=== PATIENT | female | born 1995 | race Caucasian/White ===

== ENCOUNTER 2016-06-18 21:38 | Emergency (ER) | payer OTHER ==
--- NOTE | 2016-06-18 23:11 | ED NURSING NOTES ---
Clinical Report - Nurses [facility] [address] [place] [address] 06/18/2016 21:40 Patient: VENESSA POON TRIAGE Triage time 21:45. Acuity: LEVEL 3. Chief Complaint: DIZZINESS, PALPITATIONS, DYSPNEA and NAUSEA. --21:49 TonyaB, R.N. 21:45 06/18/16. BP: 155/75. HR: 105. RR: 16. O2 saturation: 98%. Temp: 97.6 F. Pain level now: 0/10. --21:49 TonyaB, R.N. Weight: 122.4 kg. Height/Length: 65 inches. BMI: 45. --21:49 TonyaB, R.N. Medications Control Pills. --21:47 TonyaB, R.N. Allergies No Known Drug Allergy. --21:47 TonyaB, R.N. History Arrived by private vehicle. Historian: patient. Accompanied by family. This started today. 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 PAST MEDICAL HX: Immunizations: up-to-date. Last normal menstrual period- May. SURGERY HX: No history of previous surgery. SOCIAL HX: Never smoker. Occasional alcohol use. History of drug use. No infectious disease exposure. SELF HARM ASSESSMENT: A self harm assessment was performed. The patient answered "no" to the question "Have you recently felt down, depressed, or hopeless?", "Have you noticed less interest or pleasure in doing things?", "Do you have thoughts of harming or killing yourself?", "Are you here because you tried to hurt yourself?", "Have you ever tried to hurt yourself before today?", "Have you recently had thoughts about harming or killing others?" and "Do you have any dangerous items in your possession?". FALL RISK ASSESSMENT: Fall risk assessment completed. No fall risk identified. NUTRITIONAL RISK ASSESSMENT: The nutritional risk assessment revealed no deficiencies. FUNCTIONAL ASSESSMENT: Functional assessment: no impairments noted. LEARNING NEEDS ASSESSMENT: The learning needs assessment revealed no barriers. SKIN INTEGRITY ASSESSMENT: Skin integrity risk assessment completed. No skin integrity risk identified. --21:49 Hoda Allen. ADDITIONAL SURGERIES: no known surgeries. Interventions ID band on patient. To treatment room. --21:49 Hoda Allen. PHYSICAL ASSESSMENT GENERAL / NEURO / PSYCH: Alert. Oriented X 4. Appears in no acute distress. HEENT: Pupils equal, round and reactive to light. No facial asymmetry noted. Mucous membranes are pink. RESPIRATORY: Respirations not labored. Chest nontender. Breath sounds within normal limits. CVS: Normal sinus rhythm noted. Capillary refill less than 2 seconds. Pulses within normal limits. GI / : Abdomen soft and nontender and normal bowel sounds. SKIN: Skin intact. Skin is warm and dry. Normal skin turgor. --21:50 Hoda Allen. SKIN: ( face is flushed). --21:50 Vaishali Allen NURSING PROGRESS NOTES EKG time: (2228 PM). EKG was ordered, performed by a tech and shown to the ED physician. --22:34 Aneta Christie 22:31 06/18/2016 Benadryl (DiphenhydrAMINE HCl) PO Capsules 50 mg given. Allergies verified, confirmed 5 rights and sedative warning given to the patient. --22:36 Vaishali Allen ( blood and urine sent to the lab). --22:40 Vaishali Allen DISPOSITION / DISCHARGE Condition at departure: improved. No learning barriers present. Discharge instructions provided and reviewed with the patient. Treatments reviewed. Reviewed referrals. Patient and parent verbalized understanding. Written instructions provided in Romanian. The patient was discharged by the physician. She was discharged home and accompanied by parent. She left the Emergency Department ambulatory and via private vehicle. Parent driving. FALL RISK ASSESSMENT: Fall risk assessment completed. No fall risk identified. --23:29 Vaishali Allen 23:27 06/18/16. BP: 146/78. HR: 96. RR: 18. O2 saturation: 100%. Temp: deferred. Pain level now: 0/10. --23:29 Vaishali Allen Departure time: :29. --23:29 Vaishali Allen Locked/Released at 06/18/2016 23:30 by Vaishali Allen
--- NOTE | 2016-06-18 23:11 | ED NURSING NOTES ---
Clinical Report - Nurses [facility] [address] [place] [address] 06/18/2016 21:40 Patient: VENESSA POON TRIAGE Triage time 21:45. Acuity: LEVEL 3. Chief Complaint: DIZZINESS, PALPITATIONS, DYSPNEA and NAUSEA. --21:49 TonyaB, R.N. 21:45 06/18/16. BP: 155/75. HR: 105. RR: 16. O2 saturation: 98%. Temp: 97.6 F. Pain level now: 0/10. --21:49 TonyaB, R.N. Weight: 122.4 kg. Height/Length: 65 inches. BMI: 45. --21:49 TonyaB, R.N. Medications Control Pills. --21:47 TonyaB, R.N. Allergies No Known Drug Allergy. --21:47 TonyaB, R.N. History Arrived by private vehicle. Historian: patient. Accompanied by family. This started today. 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 PAST MEDICAL HX: Immunizations: up-to-date. Last normal menstrual period- May. SURGERY HX: No history of previous surgery. SOCIAL HX: Never smoker. Occasional alcohol use. History of drug use. No infectious disease exposure. SELF HARM ASSESSMENT: A self harm assessment was performed. The patient answered "no" to the question "Have you recently felt down, depressed, or hopeless?", "Have you noticed less interest or pleasure in doing things?", "Do you have thoughts of harming or killing yourself?", "Are you here because you tried to hurt yourself?", "Have you ever tried to hurt yourself before today?", "Have you recently had thoughts about harming or killing others?" and "Do you have any dangerous items in your possession?". FALL RISK ASSESSMENT: Fall risk assessment completed. No fall risk identified. NUTRITIONAL RISK ASSESSMENT: The nutritional risk assessment revealed no deficiencies. FUNCTIONAL ASSESSMENT: Functional assessment: no impairments noted. LEARNING NEEDS ASSESSMENT: The learning needs assessment revealed no barriers. SKIN INTEGRITY ASSESSMENT: Skin integrity risk assessment completed. No skin integrity risk identified. --21:49 Hoda Allen. ADDITIONAL SURGERIES: no known surgeries. Interventions ID band on patient. To treatment room. --21:49 Hoda Allen. PHYSICAL ASSESSMENT GENERAL / NEURO / PSYCH: Alert. Oriented X 4. Appears in no acute distress. HEENT: Pupils equal, round and reactive to light. No facial asymmetry noted. Mucous membranes are pink. RESPIRATORY: Respirations not labored. Chest nontender. Breath sounds within normal limits. CVS: Normal sinus rhythm noted. Capillary refill less than 2 seconds. Pulses within normal limits. GI / : Abdomen soft and nontender and normal bowel sounds. SKIN: Skin intact. Skin is warm and dry. Normal skin turgor. --21:50 Hoda Allen. SKIN: ( face is flushed). --21:50 Vaishali Allen NURSING PROGRESS NOTES EKG time: (2228 PM). EKG was ordered, performed by a tech and shown to the ED physician. --22:34 Aneta Christie 22:31 06/18/2016 Benadryl (DiphenhydrAMINE HCl) PO Capsules 50 mg given. Allergies verified, confirmed 5 rights and sedative warning given to the patient. --22:36 Vaishali Allen ( blood and urine sent to the lab). --22:40 Vaishali Allen DISPOSITION / DISCHARGE Condition at departure: improved. No learning barriers present. Discharge instructions provided and reviewed with the patient. Treatments reviewed. Reviewed referrals. Patient and parent verbalized understanding. Written instructions provided in Setswana. The patient was discharged by the physician. She was discharged home and accompanied by parent. She left the Emergency Department ambulatory and via private vehicle. Parent driving. FALL RISK ASSESSMENT: Fall risk assessment completed. No fall risk identified. --23:29 Vaishali Allen 23:27 06/18/16. BP: 146/78. HR: 96. RR: 18. O2 saturation: 100%. Temp: deferred. Pain level now: 0/10. --23:29 Vaishali Allen Departure time: :29. --23:29 Vaishali Allen Locked/Released at 06/18/2016 23:30 by Vaishali Allen
--- NOTE | 2016-06-18 23:11 | ED ORDER SUMMARY ---
..... Patient: VENESSA POON OrderSheet [facility] VisitID: [id number] [address] [place] [address] 21y, F Registration Date/Time: 06/18/2016 ORDER SHEET Weight: 122.4 kg Allergies: No Known Drug Allergy GENERAL ORDERS: Group Manager (Continuous) (palpitations) (22:10 06/18/2016 Kely Coppola) (Ack 22:13 AMcQuoid ER Tech1) (22:35 CHategekimana) CBC w Diff Urgent (22:10 06/18/2016 Kely Coppola) (Ack 22:13 AMcQuoid ER Tech1) (22:36 TBowen R.N.) CMP Urgent (22:10 06/18/2016 Kely Coppola) (Ack 22:13 AMcQuoid ER Tech1) (22:36 TBowen R.N.) UA-Culture if indicated Urgent (22:10 06/18/2016 Kely Coppola) (Ack 22:13 AMcQuoid ER Tech1) (22:36 TBowen R.N.) Urine Urgent (22:10 06/18/2016 Kely Coppola) (Ack 22:13 AMcQuoid ER Tech1) (22:36 TBowen R.N.) Pulse oximeter (22:10 06/18/2016 Kely Coppola) (Ack 22:13 AMcQuoid ER Tech1) (22:38 TBowen R.N.) EKG - ER Stat (22:10 06/18/2016 Kely Coppola) (Ack 22:13 AMcQuoid ER Tech1) (22:35 CHategekimana) MEDICATION ORDERS: Benadryl PO 50 mg (NOW) (22:10 06/18/2016 Kely Coppola) (22:36 TBowen R.N.) IV FLUIDS: ORDER SHEET NOTES: [Electronically signed by Alice Bullock R.N. (23:30 06/18/2016)] [Electronically signed by Doc Pace Dr. (05:45 06/19/2016)] [Electronically locked/signed by Alice Bullock R.N. (23:30 06/18/2016)]
--- NOTE | 2016-06-18 23:11 | ED CLINICAL REPORT ---
Clinical Report - Physicians/Mid Levels [facility] [address] [place] [place] [address] 06/18/2016 21:40 Patient: VENESSA POON Time Seen: 2200. Arrived- By private vehicle. Historian- patient. HISTORY OF PRESENT ILLNESS Chief Complaint: PALPITATIONS. Modifying factors. Not worsened by anything. Not relieved by anything. This started today and is still present but is improving. It was abrupt in onset and has been constant but is not gone now. It is described as a fast heart beat. She complains of dizziness. No chest pain or discomfort, sweating episodes, fainting episodes or dizziness. No muscle spasms. She has had difficulty breathing. ( reports recently starting up back work at [employer]. states it is stressfull.). 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 Similar symptoms previously: None. Recent medical care: Not recently seen/assessed. REVIEW OF SYSTEMS No fever, chills, skin rash or depression. Increase urinary frequency. no shortness of breath and contrast was recorded from triage. All systems otherwise negative, except as recorded above. PAST HISTORY See nurses notes. patient with history of depression and anxiety. Additional Surgeries: no known surgeries. Medications: Control Pills. Allergies: No Known Drug Allergy. SOCIAL HISTORY Never smoker. No alcohol use or drug use. No recent travel. Is a local resident. ADDITIONAL NOTES The nursing notes have been reviewed. PHYSICAL EXAM Vital Signs: 06/18/2016 21:45 BP: 155/75. HR: 105. RR: 16. O2 saturation: 98%. Temp: 97.6 F. Pain level now: 0/10. Hypertensive. Oxygen saturation normal. Appearance: Alert. Oriented X3. No acute distress. (above average BMI). Eyes: Pupils equal, round and reactive to light. Eyes normal inspection. ENT: Ears normal. Nose normal. Pharynx normal. Neck: Normal inspection. Neck supple. CVS: Normal heart rate and rhythm. Heart sounds normal. Pulses normal. Respiratory: No respiratory distress. Breath sounds normal. Chest nontender. No rales, rhonchi or wheezes. Abdomen: Soft and nontender. Bowel sounds normal. No mass. Back: Normal external inspection. Skin: Skin warm and dry. Normal skin color. No rash. Normal skin turgor. Extremities: Extremities exhibit normal ROM. No lower extremity edema. Neuro: Oriented X 3. No motor deficit. No sensory deficit. (No HI/SI or hallucinations/delusions). LABS, X-RAYS, AND EKG EKG: No acute process. No acute ischemia. Normal EKG. Normal sinus rhythm. Rate: 96. Normal P waves. Normal DARIUS. Normal QRS complex. Normal axis. Normal ST and T waves, QT and QTc. Normal sinus. Read from artifact. NO T wave abnormality on my read. The study has been interpreted contemporaneously by me. The study has been independently viewed by me. Artifact present. I do not agree with or confirm the computer reading of the EKG. Laboratory Tests: UA-Culture if indicated: (OVIDIO: 06/18/2016 22:15) ( [facility] 06/18/2016 22:34) Final results Test Result Flag Units (Reference) URINE COLOR YELLOW URINE APPEARANCE CLEAR URINE GLUCOSE 3+ (NEGATIVE) URINE BILIRUBIN NEGATIVE (NEGATIVE) URINE KETONE 1+ (NEGATIVE) URINE SPECIFIC GRAVITY >= 1.030 (1.010-1.030) URINE PH 6.0 (5.0-8.0) URINE PROTEIN NEGATIVE (NEGATIVE) URINE UROBILINOGEN 0.2 EU/dL (0.2-1.0) URINE NITRITE NEGATIVE (NEGATIVE) URINE BLOOD NEGATIVE (NEGATIVE) URINE LEUK ESTERASE NEGATIVE (NEGATIVE) URINE RBC 0-1 rbc/hpf (0-1) URINE WBC 0-1 wbc/hpf (0-1) URINE EPITHELIAL CELLS 0-1 EPI/hpf (0-5) URINE BACTERIA NONE SEEN (NONE SEEN) URINE COMMENT CULT NOT INDICATED URINE CULTURES ARE SET-UP BASED ON THE FOLLOWING CRITERIA:POSITIVE NITRITEPOSITIVE LEUKOCYTE ESTERASEGREATER THAN 10 WHITE BLOOD CELLSMODERATE (2+) OR GREATER BACTERIA Urine: (OVIDIO: 06/18/2016 22:15) ( [facility] 06/18/2016 22:32) Final results Test Result Flag Units (Reference) URINE NEGATIVE CBC w Diff: (OVIDIO: 06/18/2016 22:20) ( MsgRcvd 06/18/2016 22:42) Final results Test Result Flag Units (Reference) WHITE BLOOD COUNT 9.4 K/uL (4.5-11.5) RED BLOOD COUNT 3.96 L M/uL (4.00-5.20) HEMOGLOBIN 12.0 gm/dL (12.0-16.0) HEMATOCRIT 35.6 L % (36.0-46.0) MEAN CELL VOLUME 90 fL (80-100) MEAN CORPUSCULAR HGB 30 pg (26-34) MEAN CORPUSCULAR HGB CONC 34 g/dL (31-37) RED CELL DISTRIBUTION WIDTH 13.9 % (11.6-14.8) PLATELET COUNT 287 K/uL (150-400) NEUTROPHIL % 62.1 % (50-75) LYMPH % 29.1 % (25-40) MONO % 8.3 % (3-14) EOSINOPHIL % 0.3 % (0-4) BASOPHIL % 0.2 % (0-2) CMP: (OVIDIO: 06/18/2016 22:20) ( MsgRcvd 06/18/2016 22:59) Final results Test Result Flag Units (Reference) GLUCOSE 270 H mg/dL (70-110) BUN 14 mg/dL (7-18) CREATININE 1.1 mg/dL (0.6-1.3) Estimated GFR >60 mL/min Estimated GFR- >60 mL/min Note: Persistent reduction over 3 months in eGFR<60 mL/min/1.73 m2 defines CKD. Patients with eGFR values>=60 mL/min/1.73 m2 may also have CKD if evidence ofpersistent proteinuria. Additional information may be foundat www.kidney.org. SODIUM 141 mmol/L (136-145) POTASSIUM 3.7 mmol/L (3.5-5.1) CHLORIDE 104 mmol/L (98-107) CARBON DIOXIDE 25 mmol/L (21-32) CALCIUM 9.6 mg/dL (8.5-10.1) TOTAL PROTEIN 8.0 g/dL (6.4-8.2) ALBUMIN 3.9 g/dL (3.3-5.0) BILIRUBIN, TOTAL 0.2 mg/dL (0.0-1.0) ALKALINE PHOSPHATASE 52 U/L (46-116) AST (SGOT) 21 U/L (15-37) ALT (SGPT) 25 U/L (12-78) . PROGRESS AND PROCEDURES Course of Care: The patient is a pleasant 21-year-old female presenting for evaluation of near syncope and palpitations. The patient will be evaluated with the [place] syncope rule. The patient's mother who is at bedside per patient's request is agreeable to the treatment plan as well as the patie At this time differential diagnosis includes urinary tract infection, electrolyte abnormality,or acute adjustment disorder. Workup shows patient to have anegative [place] syncope role workup. No acute abnormalities noted on EKG. Hemoglobin and hematocrit are otherwise unremarkable. Vital signs are also noted to beadequate for her blood pressure. The patient did have a concerning finding with her urine glucose being elevated at 3+. Patient also had an elevated serum glucose without anion gap. Patient has no evidence ofdiabetic ketoacidosis. Because of the patient's above-average BMI and findings on laboratory studies,diabetes mellitus type 2 likely. I discussion with patient in regards to her findings here in the emergency department and need for close follow-up with her primary care Dr. Discussed nonpharmacological treatment methods for diabetes and encouraged patient to be diligence with diet and exercise. CLINICAL IMPRESSION 06/18/2016 21:45 BP: 155/75. HR: 105. RR: 16. O2 saturation: 98%. Temp: 97.6 F. Pain level now: 0/10. Blood pressure normal. Oxygen saturation normal. Palpitations (acute). Essential hypertension. Moderate hyperglycemia (acute). INSTRUCTIONS Warnings: GENERAL WARNINGS: Return or contact your physician immediately if your condition worsens or changes unexpectedly, if not improving as expected, or if other problems arise. SPECIFICALLY, return if you develop chest, neck, jaw, shoulder, arm, or back pain, difficulty breathing, a fluttering sensation in your chest, lightheadedness, fainting, excessive fatigue, or sudden sweating. Your Current Medications: CONTINUE TAKING THE FOLLOWING MEDICATIONS: Control Pills*. Follow-up: Return to the emergency department as needed. Follow up with your doctor in three days. Reason for referral: recheck today's concerns. Summary of care provided to patient and family via paper. Screening today revealed the patient's blood pressure to be in the normal range. The patient should follow up with a primary care provider for blood pressure management. Understanding of the discharge instructions verbalized by patient. (Electronically signed by Doc Pace Dr. 06/19/2016 5:45)
--- NOTE | 2016-06-18 23:11 | ED ORDER SUMMARY ---
..... Patient: VENESSA POON OrderSheet [facility] VisitID: [id number] [address] [place] [address] 21y, F Registration Date/Time: 06/18/2016 ORDER SHEET Weight: 122.4 kg Allergies: No Known Drug Allergy GENERAL ORDERS: Proj Mgr (Continuous) (palpitations) (22:10 06/18/2016 Kely Coppola) (Ack 22:13 AMcQuoid ER Tech1) (22:35 CHategekimana) CBC w Diff Urgent (22:10 06/18/2016 Kely Coppola) (Ack 22:13 AMcQuoid ER Tech1) (22:36 TBowen R.N.) CMP Urgent (22:10 06/18/2016 Kely Coppola) (Ack 22:13 AMcQuoid ER Tech1) (22:36 TBowen R.N.) UA-Culture if indicated Urgent (22:10 06/18/2016 Kely Coppola) (Ack 22:13 AMcQuoid ER Tech1) (22:36 TBowen R.N.) Urine Urgent (22:10 06/18/2016 Kely Coppola) (Ack 22:13 AMcQuoid ER Tech1) (22:36 TBowen R.N.) Pulse oximeter (22:10 06/18/2016 Kely Coppola) (Ack 22:13 AMcQuoid ER Tech1) (22:38 TBowen R.N.) EKG - ER Stat (22:10 06/18/2016 Kely Coppola) (Ack 22:13 AMcQuoid ER Tech1) (22:35 CHategekimana) MEDICATION ORDERS: Benadryl PO 50 mg (NOW) (22:10 06/18/2016 Kely Coppola) (22:36 TBowen R.N.) IV FLUIDS: ORDER SHEET NOTES: [Electronically signed by Alice Bullock R.N. (23:30 06/18/2016)] [Electronically signed by Doc Pace Dr. (05:45 06/19/2016)] [Electronically locked/signed by Alice Bullock R.N. (23:30 06/18/2016)]
--- NOTE | 2016-06-19 05:45 | ED DISCHARGE INSTRUCTIONS ---
Patient: VENESSA POON General Instructions [facility] VisitID: [id number] [place] [address] 21y, F Registration Date/Time: 06/18/2016 06/18/2016 21:45 BP: 155/75. HR: 105. RR: 16. O2 saturation: 98%. Temp: 97.6 F. Pain level now: 0/10. Blood pressure normal. Oxygen saturation normal. Palpitations (acute). Essential hypertension. Moderate hyperglycemia (acute). INSTRUCTIONS Warnings: GENERAL WARNINGS: Return or contact your physician immediately if your condition worsens or changes unexpectedly, if not improving as expected, or if other problems arise. SPECIFICALLY, return if you develop chest, neck, jaw, shoulder, arm, or back pain, difficulty breathing, a fluttering sensation in your chest, lightheadedness, fainting, excessive fatigue, or sudden sweating. Your Current Medications: CONTINUE TAKING THE FOLLOWING MEDICATIONS: Control Pills*. Follow-up: Return to the emergency department as needed. Follow up with your doctor in three days. Reason for referral: recheck today's concerns. Summary of care provided to patient and family via paper. Screening today revealed the patient's blood pressure to be in the normal range. The patient should follow up with a primary care provider for blood pressure management. Understanding of the discharge instructions verbalized by patient. ADDITIONAL INFORMATION Heart Palpitations Palpitations refers to the feeling that your heart is beating hard, fast or irregular. Some people describe it as "pounding" or "skipped beats". Palpitations may occur in persons with heart disease, but can also occur in healthy persons. Heart-Related Causes: Arrhythmia (a change from the heart's normal rhythm) Disease of the heart valves [id number]-[id number] Causes: Certain medicines (such as asthma inhalers and decongestants) Some herbal supplements, energy drinks and pills, and weight loss pills Illegal stimulant drugs (such as cocaine, crank, methamphetamine, PCP) Caffeine, alcohol and tobacco Medical conditions such as thyroid disease, anemia, anxiety and panic disorder Sometimes the cause cannot be found. Home Care: Avoid excess caffeine, alcohol, tobacco and any stimulant drugs. Tell your doctor about any prescription or fuoo-goe-newnnmw or herbal medicines you take. Follow Up with your doctor or as advised by our staff. Get Prompt Medical Attention if any of the following occur together with palpitations: Weakness, dizziness, light-headed or fainting Chest pain or shortness of breath Rapid heart rate (over 120 beats per minute, at rest) Palpitations that lasts over 20 minutes Weakness of an arm or leg or one side of the face Difficulty with speech or vision Arrhythmia Electrical impulses cause the normal heart to beat 60 to 100 times a minute. These impulses come from a natural pacemaker deep inside the heart muscle. Each impulse causes the heart muscle to contract. This causes the blood to flow through the heart and out to the tissues and organs of your body. An arrhythmia is a change from the normal speed or pattern of these electrical impulses. This can cause the heart to beat too fast (tachycardia); or too slow (bradycardia); or in an unsteady pattern (irregular rhythm). Symptoms of arrhythmias Different people experience arrhythmias differently. Sometimes they may not have symptoms, but just notice a change in their pulse. Symptoms can include: Fluttering feeling in the chest Shortness of breath Chest pain or pressure Lightheadedness or dizziness Fainting or nearly fainting Palpitations Tiredness, fatigue, or weakness Causes of arrhythmias Arrhythmias are most often due to heart disease such as: Coronary artery disease (arteriosclerosis) Disease of the heart valves Enlarged heart High blood pressure Heart failure Other causes ofarrhythmia include: Certain medicines (such as asthma inhalers and decongestants) Some herbal supplements Cardiac stimulant drugs (such as cocaine, amphetamine, diet pills, certain decongestant cold medicines, caffeine, and nicotine) Excessive alcohol use Medical conditions such as thyroid disease, anemia, anxiety, and panic disorder Arrythmias can often be prevented. The cause and type of arrhythmia determines the best treatment. Sometimes your doctor may want to monitor your heart rate over a 24-hour period or longer. This can help identify the cause of your arrhythmia and find the best treatment. This can be done with a Holter monitor,a portable EKG recording device attached by wires to your chest. You can carry this with you as you perform your routine activities during the monitoring period. Home care Avoid cardiac stimulants (such as cocaine, amphetamine, diet pills, certain decongestant cold medicines, caffeine, and nicotine). If you smoke, stop smoking. Contact your doctor or a local stop-smoking program for help. Tell your doctor about any prescription, epsh-hkm-zxcozti or herbal medicines you take. These may be affecting your heart rhythm. Follow-up care Follow up with your health care provider or as advised by our staff. If a Holter monitor has been recommended, contact the cardiologistyou have been referred toas soon as you canpick up the device. Other outpatient tests may also be arranged for you at that time. Call 911 This is the fastest and safest way to get to the emergency department. The paramedics can also start treatment on the way to the hospital, if needed. Don'twait until your symptoms are severe to call 911. Other reasons to call 911 besides chest pain include: Chest, shoulder, arm, neck, or back pain Shortness of breath Feeling lightheaded, faint, or dizzy Rapid heart beat Slower than usual heart rate compared to your normal Angina withweakness, dizziness, fainting, heavy sweating, nausea, or vomiting Extreme drowsiness, or confusion Weakness of an arm or leg or one side of the face Difficulty with speech or vision When to seek medical care Remember, things are not always like they are on TV. Sometimes it is not so obvious. You may only feel weak or just "not right." If it is not clear or if you have any doubt, call for advice. Seek help for chest pain, or it feels different from usual, even if your symptoms are mild. Do not drive yourself. Have someone else drive. If no one can drive you, call 911. If your doctor has given you medicines to take when you have symptoms, take them, but do not delay getting help while trying to find them. Do not delay. Fast diagnosis and treatment can prevent or limit the amount of heart damage during a heart attack or stroke. Do not go to your doctor's ofice or a clinic because they will not be able to provide all of the testing or treatment required for this condition. High Blood Pressure -- To Be Confirmed [No Tx] Your blood pressure was higher today than normal. Sometimes anxiety or pain can cause a temporary rise in blood pressure that later returns to normal. If your blood pressure is high on one measurement, this does not mean that you have hypertension (a chronic illness). However, you must have your blood pressure measured again within the next few days to find out if its still high. A normal blood pressure is 120/80 or less. The first (top) number is the "systolic" pressure. The second (bottom) number is the "diastolic" pressure. Hypertension exists when either the top number is 140 or higher, OR the bottom number is 90 or higher on repeated measurements. Blood pressure in the range of 120-140 (systolic) or 80-89 (diastolic) is considered "pre-hypertension". This means your are at risk for getting hypertension. You should have regular blood pressure checks to be sure your blood pressure is not rising. Home Care: Measure your blood pressure on 3 different days and write down the results. This can be done at your doctor's office or this facility. Some pharmacies and grocery stores offer automated blood pressure machines for your use. Follow Up: If your blood pressure is "high" (over 120/80) on 2 out of 3 days, you will need to follow up with your doctor for further evaluation and treatment. DO NOT PUT THIS OFF! Untreated high blood pressure increases the risk for heart attack, also known as acute myocardial infarction, or AMI, and stroke. It is a treatable condition. Get Prompt Medical Attention if any of the following occur: Chest pain or shortness of breath Severe headache Throbbing or rushing sound in the ears Nosebleed Sudden severe abdominal pain Extreme drowsiness, confusion or fainting Dizziness or vertigo (dizziness with spinning sensation) Weakness of an arm or leg or one side of the face Difficulty with speech or vision Diabetes with High Blood Sugar You have been treated for high blood sugar (hyperglycemia). This may be becauseof an infection or other illness;eating too many sweets or starches ; not taking enough insulin. Home care High blood sugar may cause symptoms that you can learn to recognize, such as these: If you feel like your blood sugar may be too high, measure it using a blood or urine test. If it is above your usual range, use the "sliding scale"rRegular insulin dose your doctor gave you to correct this. If no "sliding scale" orders were given, contact your doctor for further advice. If your blood sugar is over 300, and you can't reach your doctor, go to the hospital emergency room. Monitor and write down your blood sugars - and insulin dose, if you take insulin - atleast twice a day. Do this before breakfast and before dinner. Do this for the next 3 to 5 days. Follow-up care [facility] the [facility] week to review your blood sugar records. You will find out if you need to adjust your dose of insulin or other medicine for blood sugar. When to seek medical care Get prompt medical attention if either of these occur: High blood sugar.Symptoms are frequent urination, feeling dizzy, thirst, headache, nausea or vomiting, abdominal pain, and drowsiness or loss of consciousness. Low blood sugar. Symptoms are fatigue, headache, shakes, excess sweating, hunger, anxiety, reduced vision, drowsiness, weakness, confusion or loss of consciousness, and seizure. Diabetes (General Information) Cells of the body need glucose (sugar) for fuel. Insulin is the hormone in the body that lets glucose move from the blood into the cells. Diabetes is a chronic health condition where the body is not able to produce enough insulin, or does not respond well to its own insulin. Because the glucose in the blood cannot get into the cells, it builds up in the blood causing high blood sugar (hyperglycemia). Your actual blood sugar level is a result of the balance between several factors. These include what kind of food you eat and how much of it you eat, how much exercise you get, and the amount of insulin present in your body. Eating too much of the wrong kinds of food or not taking diabetes medicine on time can cause high blood sugar. Infections can cause high blood sugar even if you are taking medicines correctly. Missing meals, not eating enough food, or taking too much diabetes medicine can lead to low blood sugar. Untreated over long periods of time, diabetes can cause serious problems such as heart disease, stroke, kidney failure, blindness, nerve pain or loss of feeling in the legs and feet, and gangrene of the feet. With good treatment keeping your blood sugar under control, you can prevent or delay the complications of diabetes. Normal blood sugar levels are 70-130 one to two hours before a meal and not more than 180 two hours after a meal. Home Care: Follow your prescribed diabetic diet and take insulin or oral diabetic medicine exactly as ordered. Monitor blood sugars as advised. Keep a log of your results. This will help your doctor adjust your medicines to keep your blood sugar under control. Try to achieve your ideal weight. Proper diet and exercise can reduce or eliminate the need to take diabetes medicine. Avoid tobacco smoking, which worsens the effect of diabetes on your circulation. The risk of a heart attack in a diabetic is 15 times more likely if you smoke. Pay attention to good foot care. If you have lost feeling in your feet you may not notice an injury or infection. Check your feet and between your toes at least once a week. Wear a medical alert bracelet or carry a card in your wallet explaining that you are diabetic. In the event that you become very ill and are unable to give this information, it will help medical personnel provide proper care. If you become sick with a cold, the flu, or an infection (viral or bacterial), please do the following: Review your diabetes sick plan and contact your physician as instructed. You may have been advised to call the doctor immediately if: Your blood sugar is above 240 while taking your diabetes medication Your urine ketone levels are above normal or showing high levels of ketones You have been vomiting more than 6 hours You experience difficulty to trouble breathing You develop a high fever or you have had a fever for a couple of days and you aren't getting better You become light-headed and more sleepy than usual Keep taking your oral diabetes medicine (pills) even if you have been vomiting and feeling sick. Contact your doctor immediately for advice because you may need insulin to lower your blood sugar until you recover from your illness. Keep taking your insulin, even if you have been vomiting and feeling sick. Call your doctor immediately and ask if a temporary adjustment of your insulin dose is needed based on your blood glucose (sugar) results. Check your blood sugar every 2 to 4 hours, or at least 4 times a day. Check your keytones often. If you are vomiting and having diarrhea, monitor them more frequently. Don't skip meals. Try to eat small meals on a regular schedule, even if you do not have an appetite. Drink water or other calorie-free, non-caffeinated liquids to stay hydrated. If you are nauseated or vomiting, drink small amounts (sips, a teaspoon) every 5 minutes. To prevent dehydration, try to drink a cup or 8 ounces of fluids every hour while you are awake. Always carry a source of fast-acting sugar with you in case you get symptoms of low blood sugar (below 70). At the first sign of low blood sugar, eat or drink 15 to 20 grams of fast-acting sugar to raise your blood sugar. Examples include: 3 to 4 glucose tablets (found at most drugstores) 4 ounces (1/2 cup) of regular (not diet) softdrinks 4 ounces (1/2 cup) of any fruit juice 8 ounces (1 cup) of milk 5 to 6 pieces of hard candy 1 tablespoon of honey Check your blood sugar 15 minutes after treating yourself. If it is still low (below 70), take another 15 to 20 grams of fast-acting sugar. Test again in 15 minutes. If it returns to normal (70 or above), eat a snack or meal to keep your blood sugar in a safe range. If it remains low, call your doctor or go to an emergency room. Follow Up with your doctor as advised by our staff. For more information, contact the [employer]. www.diabetes.org or 924-874-3522. Get Prompt Medical Attention if any of the following occur: HIGH BLOOD SUGAR: frequent urination, dizziness, drowsiness, thirst, headache, nausea or vomiting, abdominal pain, vision changes, fast breathing, confusion or loss of consciousness LOW BLOOD SUGAR: fatigue, headache, shakes, excess sweating, hunger, feeling anxious or restless, vision changes, drowsiness, weakness, confusion or loss of consciousness Chest pain or shortness of breath Dizziness or fainting Weakness of an arm or leg or one side of the face Trouble with speech or vision You have been given the following additional information: Palpitations Arrhythmia, Unspecified Hypertension, To Be Confirmed Diabetic Hyperglycemia Diabetes, General Info (Electronically signed by Doc Pace Dr. 06/19/2016 5:45)
--- NOTE | 2016-06-19 05:45 | ED MAR SUMMARY ---
..... Medication Administration Record [facility] [address] [place] [address] Patient: VENESSA POON Visit ID: [id number] 21y, F Weight: 122.4 kg Height/Length: 65 in BMI: 45 ALLERGIES: No Known Drug Allergy Given 22:31 06/18/2016 Vaishali Allen Medication Administered: BENADRYL [PO] (DIPHENHYDRAMINE HCL), Dose: 50 mg Capsules PO. Medication Ordered: Benadryl PO 50 mg (NOW).
--- NOTE | 2016-06-19 05:45 | ED MAR SUMMARY ---
..... Medication Administration Record [facility] [address] [place] [address] Patient: VENESSA POON Visit ID: [id number] 21y, F Weight: 122.4 kg Height/Length: 65 in BMI: 45 ALLERGIES: No Known Drug Allergy Given 22:31 06/18/2016 Vaishali Allen Medication Administered: BENADRYL [PO] (DIPHENHYDRAMINE HCL), Dose: 50 mg Capsules PO. Medication Ordered: Benadryl PO 50 mg (NOW).
--- NOTE | 2016-06-19 05:45 | ED MED RECONCILIATION SUMMARY ---
Patient: VENESSA POON Medication Reconciliation Report [facility] VisitID: [id number] [address] [place] [address] 21y, F Registration Date/Time: 06/18/2016 Weight: 122.4 kg Height/Length: 65 in. BMI: 45.0 ALLERGIES: No Known Drug Allergy The patient's Home Medications are listed below: CONTINUE TAKING THE FOLLOWING MEDICATIONS: Control Pills The source(s) of the original Home Medication information: Not obtained. The following Medications were given to the patient in the Emergency Department: Benadryl [PO] PO 50 mg, administered: 06/18/2016 10:31:00 PM The following Medications were prescribed to the patient: None.
--- NOTE | 2016-06-19 05:45 | ED MED RECONCILIATION SUMMARY ---
Patient: VENESSA POON Medication Reconciliation Report [facility] VisitID: [id number] [address] [place] [address] 21y, F Registration Date/Time: 06/18/2016 Weight: 122.4 kg Height/Length: 65 in. BMI: 45.0 ALLERGIES: No Known Drug Allergy The patient's Home Medications are listed below: CONTINUE TAKING THE FOLLOWING MEDICATIONS: Control Pills The source(s) of the original Home Medication information: Not obtained. The following Medications were given to the patient in the Emergency Department: Benadryl [PO] PO 50 mg, administered: 06/18/2016 10:31:00 PM The following Medications were prescribed to the patient: None.
== END 2016-06-18 23:20 | disposition home or self-care (01) ==
LOC: ED SRH 21:38
DX: R00.2 Palpitations (principal); I10 Essential (primary) hypertension; R73.9 Hyperglycemia, unspecified
CPT/HCPCS: 90004; 90100; 93070; 95059